=== PATIENT | female | born 1960 | race Caucasian/White ===

== ENCOUNTER 2016-10-12 08:15 | Emergency (ER) | payer OTHER ==
[~2016-10-12] VITALS: Ht 162.6 cm; Wt 127.0 kg
[2016-10-12 08:22] VITALS: Ht 162.6 cm; Wt 127.0 kg
[2016-10-12] MEDS ORDERED: LANS30CA PO (08:31)
[2016-10-12] MEDS ORDERED: ONDANSETRON 4 MG INJ IV STA (08:48)
[2016-10-12] MEDS ORDERED: SOD CHLORIDE 0.9% 1,000 ML IV STA (08:48)
--- NOTE | 2016-10-12 08:48 | ERD ---
ER Documentation Chief Complaint Date/Time DATE: 10/12/16 TIME: 08:48 Chief Complaint dizziness nausea and muscle cramping HPI 56y/o female with h/o anxiety and vertigo presents to the ED via RA c/o muscle cramps to her arms and legs with dizziness and anxiety after awakening this morning. Denies headache, visual changes, focal weakness or numbness. No hearing changes, ear pain or tinnitus. No URI symptoms or nasal congestion. No chest pain or palpitations. Denies shortness of breath or cough. No abdominal pain or back pain. Mild nausea but no vomiting. No relieving or exacerbating factors. No fevers or chills. ROS All systems reviewed and are negative except as per history of present illness. Medications Home Meds Active Scripts Meclizine Hcl* (Antivert*) 12.5 Mg Tab, 25 MG PO Q8H Y for DIZZINESS, #12 TAB Prov:SHARLA HOLLIS MD 10/12/16 Ondansetron (Ondansetron Odt) 4 Mg Tab.rapdis, 4 MG PO Q6H Y for NAUSEA AND/OR VOMITING, #8 TAB Prov:SHARLA HOLLIS MD 10/12/16 Lorazepam* (Ativan*) 0.5 Mg Tablet, 0.5 MG PO Q8H Y for ANXIETY, #6 TAB Prov:SHARLA HOLLIS MD 10/12/16 Reported Medications Lansoprazole* (Lansoprazole*) 30 Mg Capsule.dr, 30 MG PO DAILY, CAP 10/12/16 Allergies Allergies: Coded Allergies: No Known Allergy (Unverified , 10/12/16) PMhx/Soc Reviewed in chart, as per HPI History of Surgery: Yes (lap band, abdominoplasty) Anesthesia Reaction: No Hx Neurological Disorder: No Hx Respiratory Disorders: No Hx Cardiac Disorders: No Hx Psychiatric Problems: Yes (Anxiety, depression) Hx Miscellaneous Medical Probl: Yes (Vertigo, muscle cramps) Hx Alcohol Use: No Hx Substance Use: No Hx Tobacco Use: No Smoking Status: Never smoker FmHx No stroke or cancer Physical Exam Vitals Vital Signs Date Time Temp Pulse Resp B/P Pulse Ox O2 Delivery O2 Flow Rate FiO2 10/12/16 12:04 65 20 106/59 99 Room Air 10/12/16 09:05 Nasal Cannula 2 10/12/16 08:22 98.1 67 20 100/59 100 Physical Exam Const: Alert, anxious moderate distress Head: Atraumatic Eyes: Normal Conjunctiva ENT: Normal External Ears, Nose and Mouth. Neck: Full range of motion.nontender Resp: Clear to auscultation bilaterally Cardio: Regular rate and rhythm, no murmurs Abd: Soft, non tender, non distended. Normal bowel sounds Skin: No petechiae or rashes Back: No midline or flank tenderness Ext: No cyanosis, or edema. no calf swelling or tenderness. Pulses 4+ in all extremities. Neur: Awake and alert. No focal deficit observed Psych: Anxious but not depressed Result Diagram: 10/12/16 0900 10/12/16 0900 Results 24 hrs Laboratory Tests Test 10/12/16 09:00 10/12/16 10:00 White Blood Count 7.610^3/ul Red Blood Count 4.5110^6/ul Hemoglobin 13.2g/dl Hematocrit 39.8% Mean Corpuscular Volume 88.2fl Mean Corpuscular Hemoglobin 29.3pg Mean Corpuscular Hemoglobin Concent 33.2g/dl Red Cell Distribution Width 13.0% Platelet Count 57979^3/UL Mean Platelet Volume 12.0fl Neutrophils % 61.9% Lymphocytes % 29.5% Monocytes % 7.1% Eosinophils % 1.1% Basophils % 0.1% Nucleated Red Blood Cells % 0.0/100WBC Neutrophils # 4.710^3/ul Lymphocytes # 2.210^3/ul Monocytes # 0.510^3/ul Eosinophils # 0.110^3/ul Basophils # 0.010^3/ul Nucleated Red Blood Cells # 0.010^3/ul Sodium Level 139mmol/L Potassium Level 3.5mmol/L Chloride Level 101mmol/L Carbon Dioxide Level 23mmol/L Anion Gap 19 Blood Urea Nitrogen 16mg/dl Creatinine 0.58mg/dl Glucose Level 108mg/dl Calcium Level 9.7mg/dl Magnesium Level 1.9mg/dl Total Bilirubin 0.4mg/dl Direct Bilirubin 0.00mg/dl Indirect Bilirubin 0.4mg/dl Aspartate Amino Transf (AST/SGOT) 21IU/L Alanine Aminotransferase (ALT/SGPT) 26IU/L Alkaline Phosphatase 60IU/L Troponin I < 0.012ng/ml Total Protein 7.3g/dl Albumin 4.3g/dl Globulin 3.00g/dl Albumin/Globulin Ratio 1.43 Lipase 67U/L Urine Color LT. YELLOW Urine Clarity CLEAR Urine pH 7.0 Urine Specific Bernard 1.010 Urine Ketones NEGATIVE Urine Nitrite NEGATIVE Urine Bilirubin NEGATIVE Urine Urobilinogen 0.2 E.U./dL Urine Leukocyte Esterase 1+ Urine Microscopic RBC 0-2/HPF Urine Microscopic WBC 2-5/HPF Urine Epithelial Cells FEW Urine Bacteria FEW Urine Hemoglobin TRACE Urine Glucose NEGATIVE% Urine Total Protein NEGATIVE Current Medications Medications (Trade) Dose Ordered Sig/Sondra Route PRN Reason Start Time Stop Time Status Last Admin Dose Admin Sodium Chloride (NS) 1,000 ml @ 1,000 mls/hr Q1H STAT IV 10/12/16 08:48 10/12/16 09:47 DC 10/12/16 09:09 Ondansetron HCl (Zofran Inj) 4 mg ONCE STAT IV 10/12/16 08:48 10/12/16 08:51 DC 10/12/16 09:08 Meclizine HCl (Antivert) 25 mg ONCE ONCE PO 10/12/16 09:00 10/12/16 09:01 DC 10/12/16 09:08 Lorazepam (Ativan) 0.5 mg ONCE ONCE IV 10/12/16 09:00 10/12/16 09:01 DC 10/12/16 09:08 EKG: TIME: 08:55. Sinus rhythm. Ventricular rate 62. Normal CO and QRS. No ectopy. EP Interpretation: Low voltage but otherwise normal ECG. IMAGING: PROCEDURE: XR Chest. CLINICAL INDICATION: chest pain, weakness, dizziness TECHNIQUE: Single frontal view of the chest was obtained COMPARISON: None FINDINGS: The heart and mediastinum are within normal limits. The lungs are clear. There is no pleural effusion or pneumothorax. RPTAT: AA IMPRESSION: No acute disease. .Jasvir Youssef MD, Date Time Electronically viewed and signed by .Jasvir Youssef MD, on 10/12/2016 10: 31 .S/ Procedures/MDM DOCUMENTS REVIEWED: ED nurse, no prior records REEXAMINATION/REEVALUATION: Time: 11:50. Doing well, symptoms resolved and wants to be discharged MEDICAL DECISION MA[employer]IN56y/o female with h/o anxiety and vertigo presents to the ED via RA c/o muscle cramps to her arms and legs with dizziness and anxiety after awakening this morning. Presentation consistent with anxiety/panic attack. Peripheral vertigo may also be a factor. Symptoms resolved with IV hydration, Ativan and meclizine. No ACS or cardiac dysrhythmia. No focal deficit or indication for neuroimaging. Doubt vertebrobasilar TIA. No electrolyte abnormality or hypokalemia. She has had similar recurring symptoms for many years. Stable for discharge with precautionary instructions and outpatient followup as counseled. Counseled patient and family regarding diagnostic workup, diagnosis and need for followup. Understands to return to ED if symptoms recur, worsen or any other concerns. Departure Diagnosis: Primary Impression: Vertigo Additional Impression: Muscle cramps Condition: Stable (Improved.) SHARLA HOLLIS MD October 12, 2016 08:48
[2016-10-12] MEDS ORDERED: MECLIZINE 12.5 MG TAB PO ONE (09:00)
[2016-10-12] MEDS ORDERED: LORAZEPAM 2 MG INJ IV ONE (09:00)
[2016-10-12 09:09] LABS: ADD SCAN DIFF NO
[2016-10-12 09:14] LABS: BASOPHILS % 0.1 % (0.0-2.0); EOSINOPHILS # 0.1 10^3/ul (0.0-0.5); EOSINOPHILS % 1.1 % (0.0-7.0); HEMATOCRIT 39.8 % (37.0-47.0); HEMOGLOBIN 13.2 g/dl (12.0-16.0); LYMPHOCYTES # 2.2 10^3/ul (0.8-2.9); LYMPHOCYTES % 29.5 % (15.0-51.0); MEAN CORPUSCULAR HEMOGLOBIN 29.3 pg (29.0-33.0); MEAN CORPUSCULAR HGB CONC 33.2 g/dl (32.0-37.0); MEAN CORPUSCULAR VOLUME 88.2 fl (82.0-101.0); MONOCYTE # 0.5 10^3/ul (0.3-0.9); MONOCYTES % 7.1 % (0.0-11.0); NEUTROPHIL # 4.7 10^3/ul (1.6-7.5); NEUTROPHILS % 61.9 % (39.0-77.0); PLATELET COUNT 213 10^3/UL (140-415); RED BLOOD COUNT 4.51 10^6/ul (4.20-5.40); WHITE BLOOD COUNT 7.6 10^3/ul (4.8-10.8)
[2016-10-12 09:28] LABS: ALBUMIN 4.3 g/dl (3.3-4.9); CHLORIDE 101 mmol/L (97-110); SODIUM 139 mmol/L (135-144)
[2016-10-12 09:29] LABS: POTASSIUM 3.5 mmol/L (3.5-5.1)
[2016-10-12 09:30] LABS: CREATININE 0.58 mg/dl (0.44-1.00)
[2016-10-12 09:31] LABS: ALANINE AMINOTRANSFERASE 26 IU/L (13-69); ALBUMIN/GLOBULIN RATIO 1.43; ALKALINE PHOSPHATASE 60 IU/L (42-121); ANION GAP 19 (8-16); ASPARTATE AMINO TRANSFERASE 21 IU/L (15-46); BILIRUBIN,INDIRECT 0.4 mg/dl (0-1.1); BILIRUBIN,TOTAL 0.4 mg/dl (0.2-1.3); BLOOD UREA NITROGEN 16 mg/dl (7-20); CALCIUM 9.7 mg/dl (8.4-10.2); CARBON DIOXIDE 23 mmol/L (21-31); GLUCOSE 108 mg/dl (70-220); TOTAL PROTEIN 7.3 g/dl (6.1-8.1)
[2016-10-12 09:32] LABS: MAGNESIUM 1.9 mg/dl (1.7-2.5)
[2016-10-12 09:53] LABS: TROPONIN-I < 0.012 ng/ml (0.00-0.12)
--- NOTE | 2016-10-12 10:32 | RADRPT ---
PROCEDURE: XR Chest. CLINICAL INDICATION: chest pain, weakness, dizziness TECHNIQUE: Single frontal view of the chest was obtained COMPARISON: None FINDINGS: The heart and mediastinum are within normal limits. The lungs are clear. There is no pleural effusion or pneumothorax. RPTAT: AA IMPRESSION: No acute disease. .Jasvir Youssef MD, Date Time Electronically viewed and signed by .Jasvir Youssef MD, on 10/12/2016 10:31 .S/
[2016-10-12 10:57] LABS: ADD UMIC YES; URINE BILIRUBIN (Dip) NEGATIVE (NEGATIVE); URINE BLOOD (Dip) TRACE (NEGATIVE); URINE COLOR LT. YELLOW (YELLOW); URINE GLUCOSE (Dip) NEGATIVE (NEGATIVE); URINE KETONES (Dip) NEGATIVE (NEGATIVE); URINE LEUKOCYTE ESTERASE (Dip) 1+ (NEGATIVE); URINE NITRITE (Dip) NEGATIVE (NEGATIVE); URINE TOTAL PROTEIN (Dip) NEGATIVE (NEGATIVE); URINE UROBILINOGEN (Dip) 0.2 E.U./dL (0.1-1.0)
[2016-10-12 11:34] LABS: BACTERIA,URINE FEW; URINE RBCS 0-2 /HPF (0)
[2016-10-12] MEDS ORDERED: LORA-441 PO (11:53)
[2016-10-12] MEDS ORDERED: ONDA4TAB14 PO (11:53)
[2016-10-12] MEDS ORDERED: MECL12.574 PO (11:53)
[2016-10-12 12:04] VITALS: BP 106/59; PULSE 65; RESP 20
== END 2016-10-12 12:09 | disposition home or self-care (01) ==
LOC: E/R 08:15
DX: R42 Dizziness and giddiness (principal); R40.2362 Coma scale, best motor response, obeys commands, at arrival to emergency department; R25.2 Cramp and spasm; R40.2142 Coma scale, eyes open, spontaneous, at arrival to emergency department; R40.2252 Coma scale, best verbal response, oriented, at arrival to emergency department; R11.0 Nausea
CPT/HCPCS: 36415; 71010; 80053; 81001; 81003; 83690; 83735; 84484; 85025; 96374; 96375; J2060; J2405; J7030; Z7502; Z7610; 93005